=== PATIENT | female | born 1980 | race Caucasian/White ===

== ENCOUNTER 2021-12-22 18:11 | Emergency (ER) | payer MEDICAID ==
[~2021-12-22] VITALS: Ht 163.8 cm; Wt 105.3 kg
[~2021-12-22 18:11] MED LIST: CALC500T2 PO; FERR325E14 PO; FOLI1TAB19 PO; OMEG1SGL6 PO; PREN-385 PO
[2021-12-22 18:43] VITALS: BP 159/94
--- NOTE | 2021-12-22 18:50 | NUR ---
MARI.HANDED ON URINE CUP.
--- NOTE | 2021-12-22 20:09 | NUR ---
Patient returned back from US room via wheelchair to lobby.
--- NOTE | 2021-12-22 20:18 | NUR ---
Blood for labwork drawn from right arm per skin care technician. Patient tolerated well.
[2021-12-22 20:20] LABS: APPEARANCE,URINE CLEAR (CLEAR); BILIRUBIN,URINE NEGATIVE (NEGATIVE); BLOOD, URINE NEGATIVE (NEGATIVE); LEUKOCYTE ESTERASE ,URINE NEGATIVE (NEGATIVE); NITRITE, URINE NEGATIVE (NEGATIVE); PH,URINE 6.5 (5.0-9.0); UGLUCOSE NEGATIVE (NEGATIVE)
[2021-12-22 20:21] LABS: COLOR,URINE STRAW (YELLOW)
--- NOTE | 2021-12-22 20:54 | NUR ---
Dr. Schaffer at [facility] to explain results and treatment plan.
--- NOTE | 2021-12-22 20:55 | NUR ---
SEEN AND EXAMINED BY ERMD, WITH ORDERS.
[2021-12-22 21:21] VITALS: BP 138/78
--- NOTE | 2021-12-22 21:21 | NUR ---
Patient discharged with v/s stable. Written and verbal after care instructions given and explained. Patient verbalized understanding. Ambulatory with steady gait. All questions addressed prior to discharge. Advised to follow up with PMD.
== END 2021-12-22 21:21 | disposition home or self-care (01) ==
LOC: MED 18:11
DX: O20.0 Threatened abortion (principal); Z3A.15 15 weeks gestation of pregnancy; Z79.899 Other long term (current) drug therapy
CPT/HCPCS: 36415; 76805; 81003; 81025; 86886; 86900; 86901; 99284; Q0092

== ENCOUNTER 2022-03-30 20:16 | Observation (INO) | payer MEDICAID ==
[~2022-03-30] VITALS: Ht 162.6 cm; Wt 106.1 kg
[2022-03-30 20:33] VITALS: BP 129/83
--- NOTE | 2022-03-30 20:43 | NUR ---
Patient ambulated to bed 12.
--- NOTE | 2022-03-30 20:46 | NUR ---
PT TAKEN TO L&D
[2022-03-30 21:52] VITALS: BP 122/75
== END 2022-03-30 22:28 | disposition home or self-care (01) ==
LOC: MED 20:16 → MLD 20:53 → INTOOBSV 20:53
PROVIDERS: ADMIT Obstetrics & Gynecology; ATTEND Obstetrics & Gynecology
DX: O26.893 Other specified pregnancy related conditions, third trimester (principal); R10.9 Unspecified abdominal pain; Z3A.30 30 weeks gestation of pregnancy
CPT/HCPCS: 59025; 81000; G0378